=== PATIENT | female | born 1995 | race Caucasian/White ===

== ENCOUNTER 2023-09-19 21:24 | Emergency (ER) | payer OTHER, SELFPAY ==
[2023-09-19 21:56] VITALS: BP 114/87; PULSE 76; RESP 18; TEMP 36.7; O2SAT 97; BMI 22.6
[2023-09-19 23:46] VITALS: BP 117/70; PULSE 75; RESP 17; TEMP 36.3; O2SAT 98
--- NOTE | 2023-09-20 01:05 | ED.GENADULT ---
HPI - General Adult General Chief complaint: Animal Bite Stated complaint: Bit by skunk today, rabies concern Time Seen by Provider: 09/20/23 00:10 Source: patient, RN notes reviewed and old records reviewed Mode of arrival: ambulatory Limitations: no limitations History of Present Illness HPI narrative: 28-year-old female presents for evaluation after a bite by a skunk patient reports that she was walking and saw what appeared to be in injured skunk on the side of the road she approached the animal to try and help it when it bit her right leg patient reports that she was wearing jeans and does not believe that the bite puncture the jeans however, the patient has an old, open wounds to the area where the bite was and is concerned that some saliva got into her wound. There is no way to test the skin for ease at this time as it was a wild animal and the patient left it where it was Related Data Allergies Allergy/AdvReac Type Severity Reaction Status Date / Time pine nut Allergy Hives Verified 09/19/23 22:02 Review of Systems Constitutional: Constitutional: Denies chills and Denies fever(s) PMFSH Social History Social History Unable to assess alcohol history related to: Unknown Smoked in Last 30 Days: No Use of substances other than those prescribed or required for medical reasons: Unknown Advance Directives: No Advance Directives Information Provided: No Physical Exam ED Vital Signs: Vital Signs - 24 hr 09/19/23 21:56 09/19/23 23:46 Temperature 98.0 F 97.3 F Pulse Rate 76 75 Respiratory Rate 18 17 Blood Pressure 114/87 117/70 Pulse Oximetry 97 98 Oxygen Delivery Method Room Air Room Air BMI result Body Mass Index 22.6 Const General: healthy appearing, comfortable, no acute distress, alert and awake Nutritional Appearance: well nourished Orientation/consciousness: patient oriented x3 HENMT Head: Yes normocephalic and Yes atraumatic Eyes Eyelids: Yes eyelids normal Conjunctivae: conjunctivae normal Sclerae: sclerae normal Corneas: corneas normal Pupils: Equal, round and reactive pupils present EOM: EOMs intact bilaterally Neck Neck: Yes full ROM Resp Effort & Inspection: normal respiratory effort, able to speak in complete sentences and not labored GI Inspection: No distended Palpation (GI): Soft to palpation, not firm, nontender, no guarding and not rigid Skin Other: patient has a open, healing abrasion to the right lateral lower leg, no bleeding, no obvious acute puncture wounds General skin exam: elasticity normal Neuro General: patient oriented x3 Cranial nerves: Yes Equal, round and reactive pupils present and Yes Bilaterally intact EOM present Cognition (Neuro): normal cognition Extrem Other: Moving all extremities well without any obvious deformities Medical Decision Making Medical Decision Making MDM Narrative: 28-year-old female presents for evaluation after an incident involving a mild skunk. It does not appear that these alex actually punctured through the patient's jeans, however given that she has an open wound in the area of the bite it is possible that some saliva got into the wound. Given that this is a wild animal, the patient was offered rabies treatment and she would like to proceed with the rabies vaccination series Differential Diagnosis Differential Diagnoses: The differential diagnosis associated with the presentation includes rabies exposure Teresa bite Puncture wound Abrasion Discharge Plan Discharge Clinical Impression: Bite by animal Patient Disposition: Home, Self-Care Instructions: Rabies Vaccine (By injection) Additional Instructions: the rabies vaccination was initiated today. You need to return on September 23, September 27, and October 04 for the remainder of the vaccine series
[2023-09-20] MEDS: Rabies Vaccine, Human Diploid (Imovax) 1 ML VIAL IM (01:14)
[2023-09-20] MEDS: Diphth,Pertus(ACell),Tet Adult 0.5 ML SYRINGE IM (01:16)
[2023-09-20] MEDS: Rabies Immune Globulin/PF 900 UNIT/3 ML VIAL 1270.06 UNIT IM (01:18)
--- NOTE | 2023-09-20 01:21 | PC.NURSE ---
Medicated at bedside per JAN. BONY at bedside for RIG.
--- NOTE | 2023-09-20 01:39 | PC.NURSE ---
Order set faxed to short stay and pharmacy.
== END 2023-09-20 01:41 | disposition home or self-care (01) ==
PROVIDERS: Emergency Provider Emergency Medicine Emergency Medical Services
DX: S81.851A Open bite, right lower leg, initial encounter (principal); W55.81XA Bitten by other mammals, initial encounter; Y93.89 Activity, other specified; Y92.414 Local residential or business street as the place of occurrence of the external cause; Y99.9 Unspecified external cause status; Z20.3 Contact with and (suspected) exposure to rabies
CPT/HCPCS: 90375; 90471; 90472; 90675; 90715; 96372; 99284

== ENCOUNTER 2023-09-23 09:46 | Outpatient (REF) | payer OTHER, SELFPAY | END 2023-09-23 09:47 | disposition home or self-care (01) | LOC: HO.MDS 09:46 | PROVIDERS: Visit Provider Physician Assistant | DX: Z20.3 Contact with and (suspected) exposure to rabies (principal) | CPT/HCPCS: 90471; 90675 ==

== ENCOUNTER 2023-09-28 14:31 | Outpatient (REF) | payer OTHER, SELFPAY | END 2023-09-28 14:32 | disposition home or self-care (01) | LOC: HO.MDS 14:31 | PROVIDERS: Visit Provider Physician Assistant | DX: Z20.3 Contact with and (suspected) exposure to rabies (principal); S81.851D Open bite, right lower leg, subsequent encounter; W64.XXXD Exposure to other animate mechanical forces, subsequent encounter | CPT/HCPCS: 90471; 90675 ==

== ENCOUNTER 2023-10-05 11:03 | Outpatient (REF) | payer OTHER, SELFPAY | END 2023-10-05 11:04 | disposition home or self-care (01) | LOC: HO.MDS 11:03 | PROVIDERS: Visit Provider Physician Assistant | DX: Z20.3 Contact with and (suspected) exposure to rabies (principal); S81.851D Open bite, right lower leg, subsequent encounter; W64.XXXD Exposure to other animate mechanical forces, subsequent encounter | CPT/HCPCS: 90471; 90675 ==